=== PATIENT | male | born 1970 | race Hispanic/Latino ===

== ENCOUNTER 2018-05-29 15:18 | Emergency (ER) | payer BC, OTHER ==
[2018-05-29] MEDS ORDERED: IBUPROFEN 600 MG TABLET ONE (15:26)
== END 2018-05-29 15:59 | disposition home or self-care (01) ==
LOC: EDH 15:18
DX: S16.1XXA Strain of muscle, fascia and tendon at neck level, initial encounter (principal); I10 Essential (primary) hypertension; V89.2XXA Person injured in unspecified motor-vehicle accident, traffic, initial encounter; Y93.89 Activity, other specified; Y92.410 Unspecified street and highway as the place of occurrence of the external cause; Y99.8 Other external cause status